=== PATIENT | male | born 1975 | race Caucasian/White ===

== ENCOUNTER → 2020-08-07 13:15 | Outpatient (BNVA) | payer SELFPAY | PROVIDERS: Visit Provider Podiatrist Foot & Ankle Surgery | DX: S82.865D Nondisplaced Maisonneuve's fracture of left leg, subsequent encounter for closed fracture with routine healing (principal); W17.89XD Other fall from one level to another, subsequent encounter | CPT/HCPCS: 73590 ==

== ENCOUNTER → 2020-09-06 14:06 | Outpatient (BNVA) | payer SELFPAY | PROVIDERS: Visit Provider Podiatrist Foot & Ankle Surgery | DX: S82.865D Nondisplaced Maisonneuve's fracture of left leg, subsequent encounter for closed fracture with routine healing (principal); W17.89XD Other fall from one level to another, subsequent encounter | CPT/HCPCS: 73590 ==

== ENCOUNTER 2025-05-16 09:23 | Emergency (ER) | payer OTHER, SELFPAY ==
[2025-05-16 09:28] VITALS: BP 161/116; PULSE 81; RESP 20; TEMP 36.4; O2SAT 100; BMI 25.7
--- NOTE | 2025-05-16 09:40 | W.ED.BACK ---
HPI - Back Pain/Injury General: Chief Complaint: Back Pain/Injury Stated Complaint: Lower back pain Time Seen by Provider: 05/16/25 09:40 Source: patient Mode of arrival: ambulatory Limitations: no limitations History of Present Illness: Patient is a 50-year-old male who presents to ED today with complaint of right lower back pain that radiates down into his right lower extremity. He states symptoms have been present approximately 7 to 10 days. No known injury or trauma. Feels like pain starts in his right lower back and then radiates into his right buttock and down into his calf and then into his right foot. He does complain of some paresthesias to the right foot. He did see his PCP Dr. Glaser who placed him on Neurontin after giving an IM steroid shot in the office. He also placed him on Cyclobenzaprine 10 mg TID. Patient states his pain has not improved. He does state Dr. Glaser mentioned the possibility of physical therapy. Patient is not complaining of saddle anesthesia. He has not had any episodes of bowel incontinence or bladder retention. No fevers. No systemic symptoms. He rates his pain at a 6?7/10 at rest but states pain will increase to 9/10 with ambulation. MD elicited complaint: back pain Onset (ago): day(s) (7-10 days) Timing: constant Severity: moderate Pain scale (0-10): 6 Similar Symptoms Previously: No Quality: burning Location: right lower back Radiation: right leg below the knee Exacerbating factors: movement and walking Relieving factors: none Associated symptoms: Reports no associated symptoms; Deny abdominal pain, chills, dysuria, fatigue, fever(s) or hematuria Treatments prior to arrival: other medications (steroid shot and nerve pill ) Work related injury: No Related Data Home Medications ?Medication ?Instructions ?Recorded ?Confirmed carbamazepine 200 mg tablet 200 mg PO Q12H 05/16/25 05/16/25 clonazepam 1 mg tablet 1 mg PO TID 05/16/25 05/16/25 gabapentin 300 mg capsule 300 mg PO QPM 05/16/25 05/16/25 losartan 50 mg-hydrochlorothiazide 1 tab PO DAILY 05/16/25 05/16/25 12.5 mg tablet omeprazole 20 mg capsule,delayed 20 mg PO BID 05/16/25 05/16/25 release paroxetine HCl 40 mg tablet 40 mg PO DAILY 05/16/25 05/16/25 Previous Rx's ?Medication ?Instructions ?Recorded ibuprofen 800 mg tablet 800 mg PO Q8H PRN pain #20 tabs 05/16/25 methocarbamol 500 mg tablet 1,000 mg (2 x 500 mg) PO Q8H #30 05/16/25 tabs prednisone 10 mg tablet 10 mg PO DAILY 7 days #27 tabs 05/16/25 Allergies Allergy/AdvReac Type Severity Reaction Status Date / Time No Known Allergies Allergy Verified 09/06/20 14:07 Review of Systems Const: Denies: fever(s), chills, body aches, fatigue or malaise Card: Denies: chest pain Resp: Denies: dyspnea GI: Denies: abdominal pain : Denies: flank pain, dysuria or hematuria Musc: Reports: back pain; Denies: neck pain, extremity pain, extremity swelling, joint pain, joint swelling, joint redness or joint warmth Skin/Breast: Denies: rash Neuro: Reports: sensory changes (R LE); Denies: headache(s) or weakness in extremities PFSH ED PFSH: Medical History Bipolar 1 disorder, mixed Anxiety Deficient knowledge of leg surgery Family History Father Diabetes Hypertension Mother Anxiety High cholesterol Social History Smoking and tobacco/nicotine status: current every day tobacco/nicotine user cigarettes Quit status (tobacco/nicotine): has tried quititng Second hand smoke exposure: No Alcohol intake: current Alcohol intake frequency: 0-2 Drinks per Day Alcohol type: beer Substance/Drug Use: current Substance/Drug use frequency: daily Other substance/drug use details: Patient has a medical card for this use Adopted: No Caregiver/support person: No Lives independently: Yes Household members: spouse Housing: House Marital status: Number of children: 3 Number of grandchildren: 2 Highest education level completed: Associate Degree: Occupational, Technical, Vocational Program service: No Current occupational status: employed Current occupation: Own [employer] Current occupational exposures/hazards: No Pets and animals: Yes Pets & animals: cat(s) and dog(s) Leisure activites: sports, exercise and games Sexually active: Yes Do you think of yourself as: Straight/Heterosexual Current gender identity: Male Clarissa/Restorationism: Presybeterian Special clarissa needs: No Agree to transfusion: Yes Physical Exam Const: COMMON NORMALS: no acute distress, average body habitus, patient oriented x3, no limitations, healthy appearing, alert and well nourished GENERAL APPEARANCE: cooperative ORIENTATION/CONSCIOUSNESS: Yes awake, Yes oriented to person, Yes oriented to place and Yes oriented to time Neck/C-Spine: COMMON NORMALS: full ROM and no meningeal signs CERVICAL SPINE: No Cervical spine tenderness, No Paracervical muscle tenderness and No Lhermitte's sign positive Back/Pelvis: COMMON NORMALS: thoracic and lumbar spine normal to inspection and no thoracic nor lumbar tenderness THORACIC SPINE/UPPER BACK: No thoracic spinal tenderness and No paraspinal muscle tenderness LUMBAR SPINE/LOWER BACK: Yes pain with ROM, No lumbar spinal tenderness and Yes straight leg raise positive right PELVIS: Yes buttocks normal and Yes sciatic notch tenderness on the right SACRUM: no tenderness COCCYX: no tenderness Extremity: COMMON NORMALS: normal to inspection, full ROM, capillary refill normal, no joint enlargement, no clubbing, cyanosis or edema, no calf tenderness and no pedal edema NARRATIVE EXTREMITY EXAM: pulses to bilateral LEs are intact; reported paresthesias to R foot GENERAL: Yes normal exam except as noted Neuro: COMMON NORMALS: patient oriented x3, moves all extremities and no focal motor deficits SENSORIUM/ORIENTATION: Yes alert, Yes oriented to person, Yes oriented to place and Yes oriented to time MENINGEAL SIGNS: Yes no meningeal signs MOTOR EXAM: 5/5 motor strength present throughout Skin: COMMON NORMALS: no rashes or lesions noted GENERAL SKIN EXAM: no rashes or lesions noted Course Vital Signs: Vital signs: Vital Signs Temperature 97.5 F L 05/16/25 09:28 Pulse Rate 81 05/16/25 09:28 Respiratory Rate 20 H 05/16/25 09:28 Blood Pressure 161/116 05/16/25 09:28 Pulse Oximetry 100 05/16/25 09:28 Oxygen Delivery Me thod Room Air 05/16/25 09:28 MDM - Back Pain/Injury Medical Decision Making Patient here for right sided lower back pain with radiculopathy. DDx includes sciatica, lower lumbar radiculopathy, back muscle sprain/strain, and less likely diagnoses based on history and physical exam would include epidural abscess, discitis, neoplasm, transverse myelitis, spinal vascular malformation, fracture, cauda equina, among others. Patient does not require imaging at this time. He was treated with IV Norflex, Decadron, Toradol with quite a bit of improvement in his pain. He is now rating his pain at a 2/10. We will switch his muscle relaxer from Cyclobenzaprine to Norflex as he felt the Flexeril was not working. He can continue the gabapentin. Will place him on a prednisone taper as well as an anti-inflammatory. Recommend he follow-up with primary care in 1 to 2 weeks so they can reevaluate and determine if any further management is needed which could include imaging, physical therapy, pain management or back specialist referral. Return precautions discussed with patient. Differential Diagnosis Likely lumbar radiculopathy, sciatica and strain of lumbar region Medical Records I reviewed the patient's medical records. No radiology studies performed this visit Discharge Plan Discharge Patient Disposition: Home Clinical Impression: Acute right-sided back pain with sciatica Condition: Stable Prescriptions: New methocarbamol 500 mg tablet 1,000 mg PO Q8H Qty: 30 0RF prednisone 10 mg tablet 10 mg PO DAILY 7 Days Qty: 27 0RF Rx Instructions: 6 tabs on days 1-2, 5 tabs on days 3, 4 tabs on day 4, 3 tabs on day 5, 2 tabs on day 6, 1 tab on day 7 ibuprofen 800 mg tablet 800 mg PO Q8H PRN (Reason: pain) Qty: 20 0RF Discontinued cyclobenzaprine 10 mg tablet 10 mg PO TID PRN (Reason: SCIATIC) No Action clonazepam 1 mg tablet 1 mg PO TID carbamazepine 200 mg tablet 200 mg PO Q12H gabapentin 300 mg capsule 300 mg PO QPM omeprazole 20 mg capsule,delayed release(DR/EC) 20 mg PO BID paroxetine HCl 40 mg tablet 40 mg PO DAILY losartan-hydrochlorothiazide 50-12.5 mg tablet 1 tab PO DAILY Discharge Orders: Discharge ED (Routine); Ordered 05/16/25 Ordered By: Sabina David Patient Instructions: Lumbar Radiculopathy (ED), Lower Back Exercises (ED), Patient Portal & Spring Instructions, Sciatica Activity Restrictions/Additional Instructions: As we discussed, we will have you stop your Flexeril and try you on a different muscle relaxer to see if this helps. We will also place you on a steroid taper and give you anti-inflammatories. You may continue your gabapentin. Please follow-up with primary care in 1 to 2 weeks for re-evaluation to see if medications and conservative therapies are helping. You may return to the emergency department at anytime for any further concerns you may have. I hope you begin to feel better soon. Print Language: Armenian Coding Level of Care Code ED Word Processor Operator for Jose Fleming
[2025-05-16] MEDS: orphenadrine 30 mg/mL Inj 2 mL 60 MG IVP (09:58)
[2025-05-16 11:03] VITALS: BP 133/91; PULSE 91; O2SAT 96
== END 2025-05-16 11:10 | disposition home or self-care (01) ==
PROVIDERS: Emergency Provider Physician Assistant
DX: M54.89 Other dorsalgia (principal); M54.31 Sciatica, right side; F17.210 Nicotine dependence, cigarettes, uncomplicated
CPT/HCPCS: 96374; 96375; 99284; J1100; J1885; J2360